=== PATIENT | female | born 1995 ===

== ENCOUNTER 2020-02-15 12:52 | Outpatient (CLI) | payer OTHER ==
[2020-02-15 13:31] VITALS: BP 108/63
== END 2020-02-15 14:06 | disposition home or self-care (01) ==
LOC: TRG 12:52 → APU 12:54 → TRG 14:06
PROVIDERS: ATTEND Obstetrics & Gynecology
DX: O36.8320 Maternal care for abnormalities of the fetal heart rate or rhythm, second trimester, not applicable or unspecified (principal); Z3A.28 28 weeks gestation of pregnancy
CPT/HCPCS: 59025

== ENCOUNTER 2020-04-26 08:46 | Inpatient (IN) | payer OTHER ==
[2020-04-26] MEDS ORDERED: METOCLOPRAMIDE 10 MG/2 ML INJ IV NR (10:22)
[2020-04-26] MEDS ORDERED: BICITRA ORAL LIQD 30ML PO NR (10:22)
[2020-04-26] MEDS ORDERED: FAMOTIDINE 20 MG/2 ML INJ IV NR (10:22)
--- NOTE | 2020-04-26 10:26 | Anesthesia Day of Surgery ---
Anesthesia Day of Surgery - Day of Surgery Patient Examined: Yes Patient H&P Reviewed: Yes Patient is NPO: Yes
--- NOTE | 2020-04-26 10:26 | Anesthesia Consultation ---
Anesthesia Consult and Med Hx Date of service: 04/26/20 - Airway Anesthetic Teeth Evaluation: Good ROM Head & Neck: Adequate Mental/Hyoid Distance: Adequate Mallampati Class: Class II Intubation Access Assessment: Probably Good - Pulmonary Exam CTA: Yes - Cardiac Exam Cardiac Exam: RRR - Pre-Operative Health Status ASA Pre-Surgery Classification: ASA2 Proposed Anesthetic Plan: Spinal - Pulmonary Hx Asthma: No COPD: No Hx Pneumonia: No - Cardiovascular System Hx Hypertension: No - Central Nervous System Hx Seizures: No Hx Psychiatric Problems: No - Endocrine Hx Renal Disease: No Hx End Stage Renal Disease: No Hx Hypothyroidism: No Hx Hyperthyroidism: No - Hematic Hx Anemia: No Hx Sickle Cell Disease: No - Other Systems Hx Alcohol Use: No
[2020-04-26 10:46] LABS: Basophils % (Auto) 0.4 % (0.0-1.8); Eosinophils # (Auto) 1.2 K/mm3 (0.0-0.4); Eosinophils % (Auto) 10.3 % (0.0-4.3); Hematocrit 38.4 % (30.3-42.9); Hemoglobin 13.3 gm/dl (10.1-14.3); Lymphocytes # (Auto) 2.1 K/mm3 (1.2-5.4); Lymphocytes % (Auto) 18.5 % (13.4-35.0); Mean Corpuscular HGB Conc 35 % (30-34); Mean Corpuscular Volume 91 fl (79-97); Monocytes # (Auto) 0.6 K/mm3 (0.0-0.8); Monocytes % (Auto) 5.2 % (0.0-7.3); Platelet Count 142 K/mm3 (140-440); Red Blood Count 4.24 M/mm3 (3.65-5.03); Red Cell Distribution Width 14.8 % (13.2-15.2)
[2020-04-26] MEDS: LACTATED RINGERS 1,000 ML IV SCH ×2 (10:56→11:11)
[2020-04-26] MEDS ORDERED: OXYTOCIN DRIP 30 UNITS/500 ML BAG IV SCH (11:00)
[2020-04-26] MEDS ORDERED: ceFAZolin/Water 2 GM/20 ML 2 GM/20 ML SYRINGE IV NR (11:00)
--- NOTE | 2020-04-26 11:14 | History and Physical Report ---
History of Present Illness Date of examination: 04/26/20 Date of admission: 04/26/20 10:35 Chief complaint: early labor, previous c/sectionx1 History of present illness: 24yo at 39 weeks, early labor with prvious sectionx1 DONTE 05/03/2020 P[facility] at [facility], uncomplicated Past History Past Surgical History: section - Obstetrical History Expected Date of Delivery: 05/03/20 Actual Gestation: 39 Week(s) 0 Day(s) : 2 Para: 1 Medications and Allergies Allergies Allergy/AdvReac Type Severity Reaction Status Date / Time No Known Allergies Allergy Verified 02/15/20 13:31 Home Medications Medication Instructions Recorded Confirmed Last Taken Type Ibuprofen [Motrin] 600 mg PO Q8H PRN #60 tablet 04/26/20 Unknown Rx oxyCODONE /ACETAMINOPHEN [Percocet 1 tab PO Q6HR PRN #20 tablet 04/26/20 Unknown Rx 5/325] Active Meds: Active Medications Citric Acid/Sodium Citrate (Bicitra Oral Liqd 30ml) 30 ml PO ONCE NR Stop: 04/26/20 13:00 Last Admin: 04/26/20 10:56 Dose: 30 ml Documented by: Famotidine (Famotidine 20 Mg/2 Ml Inj) 20 mg IV ONCE NR Stop: 04/26/20 13:00 Last Admin: 04/26/20 10:57 Dose: 20 mg Documented by: Lactated Ringer's (Lactated Ringers) 1,000 mls @ 2,250 mls/hr IV PREOP NASRIN Stop: 04/27/20 10:57 Last Admin: 04/26/20 11:11 Dose: 2,250 mls/hr Documented by: Oxytocin/Sodium Chloride (Pitocin/Ns 30 Unit/500ml) 30 units in 500 mls @ 0 mls/hr IV TITR NASRIN; Protocol Cefazolin Sodium (Ancef/Sterile Water 2 Gm/20 Ml) 2 gm in 20 mls @ 80 mls/hr IV PREOP NR; Protocol Stop: 04/26/20 20:00 Metoclopramide HCl (Metoclopramide 10 Mg/2 Ml Inj) 10 mg IV ONCE NR Stop: 04/26/20 13:00 Last Admin: 04/26/20 10:56 Dose: 10 mg Documented by: Review of Systems All systems: negative (reviewed) - Vital Signs Vital signs: Vital Signs Pulse BP 83 118/71 04/26/20 09:22 04/26/20 09:22 Temp Pulse Resp BP Pulse Ox 98.4 F 101 H 16 118/71 97 04/26/20 09:33 04/26/20 11:06 04/26/20 09:33 04/26/20 09:33 04/26/20 11:06 - Physical Exam Breasts: Positive: deferred Cardiovascular: Regular rate Lungs: Positive: Clear to auscultation Abdomen: Positive: normal appearance, soft, normal bowel sounds Deep Tendon Reflex Grade: Normal +2 - Obstetrical FHR: category 1 Uterine Contraction Monitor Mode: External Cervical Dilatation: 2.5 Cervical Effacement Percentage: 70 station: -3 Uterine Contraction Pattern: Regular Results Result Diagrams: 04/26/20 10:16 Abnormal lab results 04/26/20 Range/Units 10:16 WBC 11.5 H (4.5-11.0) K/mm3 MCHC 35 H (30-34) % Eos % (Auto) 10.3 H (0.0-4.3) % Eos # (Auto) 1.2 H (0.0-0.4) K/mm3 All other labs normal. Assessment and Plan plan for ercs informed consent obtained Raquel Tavera MD
[2020-04-26] MEDS ORDERED: KETOROLAC 30 MG/1 ML INJ ONE (11:15)
[2020-04-26] MEDS ORDERED: BUPIVACAINE/PF (0.5%) 5 MG/1 ML 30 ML VIAL INFILTRATI ONE (11:15)
[2020-04-26] MEDS ORDERED: BUPIVACAINE /DEX-WATER 0.75% (2 ML) AMPULE INFILTRATI ONE (11:15)
[2020-04-26] MEDS ORDERED: ONDANSETRON 4 MG/2 ML INJ ONE (11:15)
--- NOTE | 2020-04-26 11:15 | Procedure Note ---
OB Delivery Note - Delivery Date of Delivery: 04/26/20 Surgeon: MACO LACKEY Estimated blood loss: 500cc - Section Preop diagnosis: other (early labor) Postop diagnosis: same section procedure: repeat low transverse Disposition: PACU Complications: none Narrative: Preop diagnosis: IUP at 39-week, early labor with previous x1 Postop diagnosis: Same, delivered Procedure: Repeat low transverse section via Pfannenstiel incision Surgeon: Dr. Maco Lackey Anesthesia spinal Complications none [id number] ml IV fluids 1000mL Urine output 200mL, clear Drains Stinson to gravity Findings: Viable male with weight 3295gms and 8/9, normal uterus tubes and ovaries bilaterally Procedure: Patient was consented in OB triage, taken to the operating room where she received excellent spinal anesthesia. She was then placed in the dorsal supine position with a leftward tilt. The abdomen was prepped and draped in a sterile fashion, and a timeout was verified. Adequate anesthesia was confirmed prior to the skin incision. A Pfannenstiel skin incision was made with a scalpel taken down to the underlying structures and the fascia was incised in the midline. The incision was extended laterally with curved Burleson scissors, the superior and inferior aspects of the fascial incisions were grasped with Ary clamps and the rectus muscles dissected sharply. The abdomen was entered bluntly in the midline carried down inferiorly with good visualization of the bladder. The vesicouterine peritoneum was tented with [place] forceps and incised in the midline with Metzenbaum scissors and the vesicouterine peritoneum taken down sharply. Bladder blade was inserted, the uterine incision was made sharply with a scalpel. The inferior and superior aspect of the uterine incisions were extended bluntly, the baby's head was delivered atraumatically. The remainder of the delivery was atraumatic, a loose nuchal cord was reduced during delivery. The cord was clamped and cut and baby handed to waiting NICU team. Cord blood obtained. An intact placenta with three-vessel cord delivered manually. The uterus was then cleared of all clots and debris and the uterus exteriorized. The uterine incision was closed with 2 layers of 0 chromic with excellent hemostasis. The abdomen was then irrigated with warm normal saline and the uterus placed back into the abdomen atraumatically. A second look at the uterine incision and ensured hemostasis. The peritoneum was closed with 3-0 Vicryl, the rectus muscles approximated with 3-0 Vicryl, and the fascia closed with 0 Vicryl in the usual fashion. The subcuticular structures were closed with interrupted sutures of 3-0 Vicryl and the skin closed with ryan. A pressure dressing was applied. All sponge needle and instrument counts were correct x2. There were no complications. Mom to the recovery area and baby to NICU in stable condition. EBL 500mL Raquel Lackey MD - Infant A at 1 minute: 8 at 5 minutes: 9 Infant Gender: Male (3295gms)
[2020-04-26] MEDS ORDERED: WATER FOR IRRIG STERILE 1,500 ML BOTTLE IR ONE (11:35)
[2020-04-26] MEDS ORDERED: SODIUM CHLORIDE 0.9% IRR 1,500 ML BOTTLE IR ONE (11:35)
[2020-04-26] MEDS ORDERED: PHENYLEPHRINE/NS 1,000 MCG/10 ML SYRINGE (OR USE) IV ONE (11:42)
[2020-04-26] MEDS ORDERED: SODIUM CHLORIDE 0.9% 500 ML 500 ML ONE (11:42)
[2020-04-26] MEDS ORDERED: LACTATED RINGERS 1,000 ML ONE (11:46)
[2020-04-26] MEDS ORDERED: GLYCOPYRROLATE 0.4 MG/2 ML INJ ONE (12:04)
[2020-04-26] MEDS ORDERED: WITCH HAZEL/ GLYCERIN PAD TP PRN (13:01)
--- NOTE | 2020-04-26 13:03 | Progress Note ---
Spinal Anesthesia Block - Spinal Anesthesia Block Start Time: 11:30 Stop Time: 11:35 Performed by:: ZHAO MALONE Procedure: Sitting, sterile betadine prep/drape, 1% lidocaine skin local, 25G spinal needle + introduced at L3-4, + CSF, - Heme, [1.9 ml 0.5% bupivacaine + 10 mcg dexmedetomidine] injected, drape removed, patient positioned supine with left uterine displacement, and spinal level verified to be adequate prior to surgery.
--- NOTE | 2020-04-26 13:03 | Progress Note ---
Regional Anesthesia Block - Regional Anesthesia Block Start Time: 12:45 Stop Time: 12:50 Performed By:: ZHAO MALONE Procedure: U/S guided bilateral tap block performed for post-operative pain requested by Dr. Tavera. H&P & labs reviewed. Procedure explained, questions answered, consent obtained. Patient in the supine position with ekg, blood pressure cuff and pulse ox on and working in PACU. Timeout performed immediately before start of procedure. Probe placed in the mid-axillary line and the external oblique, internal oblique, and transverse abdominus muscles identified. Skin was cleansed with 0.5% Chlorahexadine and allowed to dry. A 4" 20 G Morrison echogenic needle was advanced in plane until the tip was in the fascial plane between the internal oblique and the transverse abdominus. After negative aspiration 35 ml/side of [30 ml 0.5% Bupivacaine], [50 mcg dexmedetomidine], [10 mg dexamethasone], and [40 ml sterile saline] was injected in 5 ml increments with negative aspiration in between. Patient tolerated procedure well.
[2020-04-26] MEDS ORDERED: IBUPROFEN 600 MG TAB PO PRN (13:30)
[2020-04-26] MEDS ORDERED: SIMETHICONE 80 MG CHEW TAB PO PRN (13:30)
[2020-04-26] MEDS ORDERED: HYDROcodone/ACETAMINOPHEN 5-325 MG TAB PO PRN (13:30)
[2020-04-26] MEDS ORDERED: LANOLIN/ZINC/DIMETHICONE (LANSINOH) 7 GM TP PRN (13:30)
[2020-04-26] MEDS ORDERED: KETOROLAC 30 MG/1 ML INJ IV PRN (13:30)
[2020-04-26] MEDS ORDERED: NALOXONE 0.4 MG/1 ML INJ IV PRN (13:30)
[2020-04-26] MEDS ORDERED: ONDANSETRON 4 MG/2 ML INJ IV PRN (13:30)
[2020-04-26] MEDS ORDERED: MORPHINE 4 MG/1 ML INJ IV PRN (13:30)
[2020-04-26] MEDS ORDERED: METHYLERGONOVINE MALEATE 0.2 MG/ML VIAL IM ONE ×2 (13:48→13:51)
[2020-04-26] MEDS ORDERED: MAGNESIUM HYDROXIDE (MOM) ORAL LIQD UDC PO PRN (22:00)
[2020-04-27 01:20] LABS: Hematocrit 36.5 % (30.3-42.9); Hemoglobin 12.4 gm/dl (10.1-14.3)
[2020-04-27] MEDS: IBUPROFEN 800 MG TAB PO PRN ×2 (05:30→18:49)
--- NOTE | 2020-04-27 06:44 | Post Anesthesia Evaluation ---
- Post Anesthesia Evaluation Patient Participated: Yes Airway Patent: Yes Stable Respiratory Function: Yes Nausea/Vomiting: No Temp > 96.8F: Yes Pain Manageable: Yes Adequeate Hydration: Yes Anesthesia Complications: No Block Receding Appropriately: Yes
--- NOTE | 2020-04-27 11:16 | Progress Note ---
Assessment and Plan A: /postop day 1 S/P repeat low transverse section. P: Encouraged patient to ambulate in halls today. Anticipate discharge in 48 hours if patient continues to do well. Subjective - Subjective Date of service: 04/27/20 Principal diagnosis: /postop day 1 S/P repeat LTCS Patient reports: appetite normal, voiding normally, pain well controlled, flatus, ambulating normally, no dizzy ambulation, no nauseated [place]: doing well Objective - Vital Signs Latest vital signs: Vital Signs Temp Pulse Resp BP BP Pulse Ox 04/27/20 08:06 98.9 F 82 22 99/58 95 04/27/20 06:30 18 04/27/20 05:30 18 04/27/20 04:35 98.3 F 65 18 124/72 98 04/27/20 03:28 18 04/27/20 02:28 18 04/27/20 01:34 98.6 F 92 H 18 105/60 95 04/26/20 21:55 99.6 F 84 20 107/66 96 04/26/20 14:30 98.5 F 56 L 18 124/62 99 04/26/20 14:20 48 L 124/62 97 04/26/20 13:40 98.2 F 52 L 15 108/62 97 04/26/20 13:35 97.5 F L 54 L 15 114/64 97 04/26/20 13:20 52 L 14 112/61 97 04/26/20 13:05 50 L 14 110/61 97 04/26/20 12:50 50 L 14 98/49 97 04/26/20 12:45 52 L 14 98/40 97 04/26/20 12:40 57 L 105/40 97 04/26/20 12:39 97.6 F 56 L 15 99/34 97 Intake and Output 04/26/20 04/27/20 04/27/20 23:59 07:59 15:59 Intake Total 240 720 Output Total 375 750 Balance -135 -30 Intake: Oral 240 Intake, Free Water 240 480 Output: Urine 375 750 Indwelling Catheter 375 400 Void 350 Other: Total, Intake Amount 240 Total, Output Amount 375 350 # Voids Void 1 - Exam Cardiovascular: Present: Regular rate Lungs: Present: Clear to auscultation Abdomen: Present: normal appearance, soft, normal bowel sounds. Absent: distention, tenderness, guarding, rigidity Uterus: Present: normal, firm, fundal height below umbilicus. Absent: bogginess, tenderness Extremities: Present: normal. Absent: tenderness, edema Incision: Present: normal, dry, intact, dressed
[2020-04-28] MEDS: IBUPROFEN 800 MG TAB PO PRN (09:26)
--- NOTE | 2020-04-28 11:53 | Progress Note ---
Assessment and Plan A: S/P Repeat LTCS p: Continue monitoring D/C home if stable per pt request - Patient Problems (1) delivery delivered Current Visit: Yes Status: Acute Subjective - Subjective Date of service: 04/28/20 Principal diagnosis: /postop day 1 S/P repeat LTCS Patient reports: appetite normal, voiding normally, pain well controlled, flatus, ambulating normally : doing well, nursing well Objective - Vital Signs Latest vital signs: Vital Signs Temp Pulse Resp BP BP Pulse Ox 04/28/20 07:50 97.5 F L 74 19 100/60 97 04/27/20 23:26 97.8 F 88 20 95/56 97 Intake and Output 04/27/20 04/28/20 04/28/20 22:59 06:59 14:59 Intake Total 200 360 Balance 200 360 Intake: Oral 200 120 Intake, Free Water 240 Other: Total, Intake Amount 200 120 # Voids Void 1 2 - Exam Breasts: Present: normal Abdomen: Present: normal appearance, soft, normal bowel sounds Vulva: both: normal Uterus: Present: normal, firm, fundal height below umbilicus Extremities: Present: normal Incision: Present: normal, dry, intact
--- NOTE | 2020-04-28 12:01 | Discharge Summary ---
Providers - Providers Date of Admission: 04/26/20 10:35 Date of discharge: 04/28/20 Attending physician: MACO LACKEY MD Primary care physician: MACO LACKEY MD Hospitalization Reason for admission: active labor Delivery: Procedure: repeat low transverse Episiotomy: none Laceration: none Incision: normal, dry, intact Other procedures: none complications: none Discharge diagnosis: IUP at term delivered [place] baby: male Hospital course: Pt was admitted to OB triage in active labor. She underwent a repeat LTCS and had an uneventful pp stay. Pt was d/c'd home in stable condition. See H&P, delivery summary, and pp notes. Condition at discharge: Stable Disposition: DC-01 TO HOME OR SELFCARE - Discharge Diagnoses (1) delivery delivered Status: Acute Plan - Discharge Medications Prescriptions: Ibuprofen [Motrin] 600 mg PO Q8H PRN #60 tablet PRN Reason: Pain oxyCODONE /ACETAMINOPHEN [Percocet 5/325] 1 tab PO Q6HR PRN #20 tablet PRN Reason: Pain - Provider Discharge Summary Activity: no sex for 6 weeks, no heavy lifting 4 weeks, no strenuous exercise Diet: routine Instructions: routine Additional instructions: [] Smoking cessation referral if applicable(refer to patient education folder for contact #) [] Refer to [facility]'s [facility] Booklet Call your doctor immediately for: * Fever > 100.5 * Heavy vaginal bleeding ( >1 pad per hour) * Severe persistent headache * Shortness of breath * Reddened, hot, painful area to leg or breast * Drainage or odor from incision. * Keep incision clean and dry at all times and follow doctor's instructions regarding bathing/showering - Follow up plan Follow up: MACO LACKEY MD [Primary Care Provider] - 7 Days Forms: [facility] Discharge Summary
[2020-04-28 12:18] VITALS: BP 106/53
== END 2020-04-28 20:35 | disposition home or self-care (01) | DRG 788 ==
LOC: TRG 08:46 → APU 08:49 → TRG 10:35 → OB 14:47
PROVIDERS: ADMIT Obstetrics & Gynecology; ATTEND Obstetrics & Gynecology
PROC: 10D00Z1 Extraction of Products of Conception, Low, Open Approach (ICD-10-PCS; principal; 2020-04-26)
PROC: 3E0T3BZ Introduction of Anesthetic Agent into Peripheral Nerves and Plexi, Percutaneous Approach (ICD-10-PCS; 2020-04-26)
DX: O34.211 Maternal care for low transverse scar from previous cesarean delivery (principal); Z37.0 Single live birth; Z20.828 Contact with and (suspected) exposure to other viral communicable diseases; Z3A.39 39 weeks gestation of pregnancy
CPT/HCPCS: 36415; 85014; 85018; 85025; 86592; 86850; 86900; 86901; G0378; J1885; J2370; J2405; J2765; J3490; J7040; J7120; U0003